=== PATIENT | female | born 1980 | race Hispanic/Latino ===

== ENCOUNTER 2023-02-05 22:16 | Emergency (ER) | payer BC, SELFPAY ==
[2023-02-05 22:18] VITALS: BP 168/94; PULSE 108; RESP 18; TEMP 36.4; O2SAT 100
--- NOTE | 2023-02-05 22:46 | ED.ANIMALBIT ---
HPI - Animal Bite General Chief Complaint: Animal Bite Stated Complaint: dog bite Time Seen by Provider: 02/05/23 22:30 History of Present Illness HPI narrative: 42-year-old female present emergency department for evaluation after receiving a dog bite. Patient reports that her dog was being attacked by 4 pit bulls and while trying to break up the dog fight she was bit on the right arm. Patient states she is unsure of the vaccination status of the dog's but the dogs are known and can be observed. Patient states her tetanus is not up-to-date. Related Data Allergies Allergy/AdvReac Type Severity Reaction Status Date / Time benzonatate Allergy Swelling Verified 02/05/23 22:25 [From Tessalon Perles] diphenhydramine AdvReac Palpitation Verified 02/05/23 22:25 [From Benadcarolinal] s Review of Systems Review of Systems: All systems reviewed & are unremarkable except as noted in HPI and below Exam Narrative: APPEARANCE: Well appearing, no pain, no distress, well-nourished. HEAD: normocephalic, atraumatic. EYES: PERRLA/EOMI, conjunctivae clear. NOSE: Normal no drainage NECK: Supple. No adenopathy, no masses. RESPIRATORY: Airway patent, respirations nonlabored. Clear to auscultation bilaterally, no rales, rhonchi, wheezing. CARDIOVASCULAR: Regular rate and rhythm without murmurs rubs or gallops. ABDOMINAL: Soft, nontender, nondistended, normal bowel sounds MUSCULOSKELETAL: Moves all extremities. Strength/ROM intact, No edema, No calf tenderness. NEURO: Alert. Cranial nerves II through XII intact. Grossly intact SKIN: Contusion and ecchymosis to right forearm Course Course Emergency Course: 42-year-old female presented ED for evaluation after an injury to her right arm from a dog bite. Patient's tetanus was updated. Patient was treated with Augmentin in the ED and discharged home on Augmentin. Patient was encouraged of close follow-up with her primary care physician. All questions concerns were addressed. Patient is well-appearing at time of discharge Vital Signs Vital signs: Vital Signs Temperature 97.6 F 02/05/23 22:18 Pulse Rate 108 H 02/05/23 22:18 Respiratory Rate 18 02/05/23 22:18 Blood Pressure 168/94 H 02/05/23 22:18 Pulse Oximetry 100 02/05/23 22:18 Oxygen Delivery Room Air 02/05/23 22:18 Temperature 97.6 F 02/05/23 22:18 Pulse Rate 108 H 02/05/23 22:18 Respiratory Rate 18 02/05/23 22:18 Blood Pressure 168/94 H 02/05/23 22:18 Pulse Oximetry 100 02/05/23 22:18 Oxygen Delivery Room Air 02/05/23 22:18 MDM - Animal Bite Differential Diagnosis Differential diagnosis: Likely bite by animal, dog bite and rabies contact Discharge Plan Discharge Clinical Impression: Dog bite Patient Disposition: Home, Self-Care Condition: Stable Instructions: Antibiotic Form, Animal Bite (ED) Additional Instructions: Antibiotic as directed until completed. Have close follow-up with your primary care physician. If you have any worsening symptoms please call or return to the emergency department. Prescriptions: New amoxicillin-pot clavulanate 875-125 mg tablet 1 tablet PO Q12H Qty: 14 0RF Follow-up/Referrals: PHYSICIAN NOT ON STAFF,NONSTAFF [Primary Care Provider] -
[2023-02-05] MEDS: TETANUS,DIPHTHERIA,AC PERTUSSIS ADULT (0.5 ML) BOOSTRIX IM (22:51)
[2023-02-05] MEDS: AMOXICILLIN/CLAVULANATE K 875-125 MG TAB 1 TABLET PO (22:51)
== END 2023-02-05 22:56 | disposition home or self-care (01) ==
PROVIDERS: Emergency Provider Emergency Medicine
DX: S51.851A Open bite of right forearm, initial encounter (principal); Z23 Encounter for immunization; W54.0XXA Bitten by dog, initial encounter
CPT/HCPCS: 90471; 90715; 99283; A9270